=== PATIENT | male | born 1975 | race American Indian/Alaskan Native ===

== ENCOUNTER 2018-05-18 12:16 | Emergency (ER) | payer OTHER ==
--- NOTE | 2018-05-18 13:35 | XRay Report ---
RIGHT SHOULDER, 3 VIEWS: HISTORY: right shoulder pain. Normal bone mineralization. No acute osseous injury or joint pathology is detected. The soft tissues are unremarkable. IMPRESSION: Right shoulder within normal limits.
--- NOTE | 2018-05-18 16:48 | Emergency Department Report ---
ED Upper Extremity Inj HPI - General Chief Complaint: Shoulder Injury Stated Complaint: (R) SHOULDER PAIN Time Seen by Provider: 05/18/18 16:13 Source: patient Mode of arrival: Ambulatory Limitations: No Limitations - History of Present Illness Initial Comments: 42-year-old male presents to ED with right shoulder pain. Patient states he was carrying a rental car porter in front of him, began attempting to lift it upward and to the right when he experienced pain in the right shoulder. Denies feeling any popping sensation. Denies numbness or tingling in extremity. MD Complaint: Injury to:: right, shoulder -: This afternoon Other Injuries: none Improves With: immobilization Worsens With: movement of extremity Associated Symptoms: denies: weakness, numbness, neck pain, heard/felt popping sensat Treatments Prior to Arrival: cold therapy - Related Data Previous Rx's Medication Instructions Recorded Last Taken Type Aspirin [Aspirin TAB] 325 mg PO QDAY #30 tablet 01/26/18 Unknown Rx AtorvaSTATin [Lipitor] 20 mg PO QHS #30 tablet 01/26/18 Unknown Rx Insulin NPH, Human [NovoLIN N] 15 unit SUB-Q BIDDIAB 30 Days 01/26/18 Unknown Rx units Pantoprazole [Protonix TAB] 40 mg PO DAILY #30 tablet 01/26/18 Unknown Rx metFORMIN [Glucophage] 500 mg PO BIDDIAB #60 tablet 01/26/18 Unknown Rx Methocarbamol [Robaxin-750] 750 mg PO Q6HR PRN #20 tablet 05/18/18 Unknown Rx Naproxen [Naprosyn] 500 mg PO BID #20 tablet 05/18/18 Unknown Rx traMADol [Ultram] 50 mg PO Q6HR PRN #7 tablet 05/18/18 Unknown Rx Allergies Allergy/AdvReac Type Severity Reaction Status Date / Time No Known Allergies Allergy Verified 05/18/18 12:37 ED Review of Systems ROS: Stated complaint: (R) SHOULDER PAIN Other details as noted in HPI Comment: All other systems reviewed and negative Musculoskeletal: arthralgia. denies: joint swelling Neurological: denies: weakness, numbness, paresthesias ED Past Medical Hx - Past Medical History Previous Medical History?: Yes Hx Diabetes: Yes Additional medical history: high cholesterol. G6PD deficiency - Surgical History Hx Appendectomy: Yes Additional Surgical History: back surgery - Social History Smoking Status: Never Smoker Substance Use Type: None - Medications Home Medications: Home Medications Medication Instructions Recorded Confirmed Last Taken Type Aspirin [Aspirin TAB] 325 mg PO QDAY #30 tablet 01/26/18 Unknown Rx AtorvaSTATin [Lipitor] 20 mg PO QHS #30 tablet 01/26/18 Unknown Rx Insulin NPH, Human [NovoLIN N] 15 unit SUB-Q BIDDIAB 30 Days 01/26/18 Unknown Rx units Pantoprazole [Protonix TAB] 40 mg PO DAILY #30 tablet 01/26/18 Unknown Rx metFORMIN [Glucophage] 500 mg PO BIDDIAB #60 tablet 01/26/18 Unknown Rx Methocarbamol [Robaxin-750] 750 mg PO Q6HR PRN #20 tablet 05/18/18 Unknown Rx Naproxen [Naprosyn] 500 mg PO BID #20 tablet 05/18/18 Unknown Rx traMADol [Ultram] 50 mg PO Q6HR PRN #7 tablet 05/18/18 Unknown Rx ED Physical Exam - General Limitations: No Limitations General appearance: alert, in no apparent distress - Head Head exam: Present: atraumatic, normocephalic - Eye Eye exam: Present: normal appearance - ENT ENT exam: Present: mucous membranes moist - Neck Neck exam: Present: normal inspection - Respiratory Respiratory exam: Present: normal lung sounds bilaterally. Absent: respiratory distress - Cardiovascular Cardiovascular Exam: Present: regular rate, normal rhythm - Extremities Exam Extremities exam: Present: other (is present right shoulder, no deformities noted. Pain with abduction of the right arm. Able to abduct right arm to 90) - Neurological Exam Neurological exam: Present: alert, oriented X3. Absent: motor sensory deficit - Psychiatric Psychiatric exam: Present: normal affect, normal mood - Skin Skin exam: Present: warm, dry, intact, normal color ED Medical Decision Making - Radiology Data Radiology results: report reviewed, image reviewed RIGHT SHOULDER, 3 VIEWS: HISTORY: right shoulder pain. Normal bone mineralization. No acute osseous injury or joint pathology is detected. The soft tissues are unremarkable. IMPRESSION: Right shoulder within normal limits. Transcribed By: TTR Dictated By: MARIVEL KEITH JR, MD Electronically Authenticated By: MARIVEL KEITH JR, MD Signed Date/Time: 05/18/18 1333 - Differential Diagnosis fracture, sprain, dislocation Critical care attestation.: If time is entered above; I have spent that time in minutes in the direct care of this critically ill patient, excluding procedure time. ED Disposition Clinical Impression: Sprain of right shoulder Disposition: - TO HOME OR SELFCARE Is pt being admited?: No Condition: Stable Instructions: Shoulder Sprain (ED) Prescriptions: Methocarbamol [Robaxin-750] 750 mg PO Q6HR PRN #20 tablet PRN Reason: Spasms Naproxen [Naprosyn] 500 mg PO BID #20 tablet traMADol [Ultram] 50 mg PO Q6HR PRN #7 tablet PRN Reason: Pain Referrals: BRIANA OSCAR MD [Staff Physician] - 3-5 Days Time of Disposition: 16:50
[2018-05-18 17:35] VITALS: BP 126/88
== END 2018-05-18 17:34 | disposition home or self-care (01) ==
LOC: ED 12:16
DX: S43.401A Unspecified sprain of right shoulder joint, initial encounter (principal); E11.9 Type 2 diabetes mellitus without complications; E78.5 Hyperlipidemia, unspecified; X50.0XXA Overexertion from strenuous movement or load, initial encounter; Y93.89 Activity, other specified; Y92.89 Other specified places as the place of occurrence of the external cause; Y99.8 Other external cause status

== ENCOUNTER 2019-04-30 10:15 | Emergency (ER) | payer OTHER ==
[2019-04-30 10:51] VITALS: BP 147/84
--- NOTE | 2019-04-30 10:54 | Event Note ---
ED Screening Note Date of service: 04/30/19 Time: 10:51 ED Screening Note: 43 y o male presents to Ed cc of right shoulder pain states pain worse with lifting up This initial assessment/diagnostic orders/clinical plan/treatment(s) is/are subject to change based on patients health status, clinical progression and re- assessment by fellow clinical providers in the ED. Further treatment and workup at subsequent clinical providers discretion. Patient/guardian urged not to elope from the ED as their condition may be serious if not clinically assessed and managed. Initial orders include: xr Shoulder
--- NOTE | 2019-04-30 11:38 | Emergency Department Report ---
HPI - General Chief Complaint: Shoulder Injury Time Seen by Provider: 04/30/19 10:48 - HPI HPI: 43-year-old -[place] male presents to the emergency department with complaint of acute on chronic right shoulder pain. The patient has a history of a right shoulder injury from about one year ago. He had surgery done in February of this year that includes nerve decompression and fixing shoulder separation. He was at physical therapy last doing exercises when he developed some worsening of his shoulder pain. Because of this, the patient went to the [facility] for evaluation and was diagnosed with a strained muscle. However, he is on Worker's Compensation and the Worker's Compensation asked for a nonmilitary/civilian assessment of his shoulder pain. He denies any numbness, paresthesias, joint swelling, skin color change. ED Past Medical Hx - Past Medical History Previous Medical History?: Yes Hx Diabetes: Yes Additional medical history: high cholesterol. G6PD deficiency - Surgical History Past Surgical History?: Yes Hx Appendectomy: Yes Additional Surgical History: back surgery. right shoulder surgery - Social History Smoking Status: Never Smoker Substance Use Type: None - Medications Home Medications: Home Medications Medication Instructions Recorded Confirmed Last Taken Type Aspirin 325 mg PO QDAY #30 tablet 01/26/18 Unknown Rx AtorvaSTATin [Lipitor] 20 mg PO QHS #30 tablet 01/26/18 Unknown Rx Insulin NPH, Human [NovoLIN N] 15 unit SUB-Q BIDDIAB 30 Days 01/26/18 Unknown Rx units Pantoprazole [Protonix TAB] 40 mg PO DAILY #30 tablet 01/26/18 Unknown Rx metFORMIN [Glucophage] 500 mg PO BIDDIAB #60 tablet 01/26/18 Unknown Rx Methocarbamol [Robaxin-750] 750 mg PO Q6HR PRN #20 tablet 05/18/18 Unknown Rx Naproxen [Naprosyn] 500 mg PO BID #20 tablet 05/18/18 Unknown Rx traMADol [Ultram] 50 mg PO Q6HR PRN #7 tablet 05/18/18 Unknown Rx ED Review of Systems ROS: Stated complaint: R SHOULDER PAIN Other details as noted in HPI Comment: All other systems reviewed and negative Constitutional: denies: chills, fever Musculoskeletal: arthralgia (his urine showed blood right lower quadrant peritoneal signs history of gallstones). denies: joint swelling Neurological: denies: numbness, paresthesias Physical Exam - Physical Exam Vital Signs: Vital Signs 04/30/19 10:47 Temperature 98.4 F Pulse Rate 91 H Respiratory 20 Rate Blood Pressure 147/84 O2 Sat by Pulse 98 Oximetry Physical Exam: GENERAL: The patient is well-developed well-nourished. HENT: Normocephalic. Atraumatic. Patient has moist mucous membranes. EYES: Extraocular motions are intact. NECK: Supple. Trachea is midline. CHEST/LUNGS: Clear to auscultation. There is no respiratory distress noted. HEART/CARDIOVASCULAR: Regular. There is no tachycardia. There is no murmur. ABDOMEN: There is no abdominal distention. SKIN: Skin is warm and dry. NEURO: The patient is awake, alert, and oriented. The patient is cooperative. The patient has no focal neurologic deficits. Normal speech. MUSCULOSKELETAL: Mild tenderness to palpation to the right superior anterior shoulder. No obvious deformity. There is no limitation range of motion. ED Course Vital Signs 04/30/19 10:47 Temperature 98.4 F Pulse Rate 91 H Respiratory 20 Rate Blood Pressure 147/84 O2 Sat by Pulse 98 Oximetry ED Medical Decision Making - Radiology Data Radiology results: image reviewed interpreted by me: X-ray of the right shoulder does not show any fracture, dislocation or any acute process. - Medical Decision Making This patient presents to the emergency department for a second opinion of his right shoulder pain as he apparently needs a nonmilitary or a civilian physician to evaluate him as part of his Worker's Compensation claims. He has chronic right shoulder pain and a surgically repaired shoulder and recently exacerbated the shoulder pain during physical therapy. X-ray does not show any fracture, dislocation or any acute process. He has been given instructions to follow-up with his orthopedist. He will return to the ER with any worsening of his symptoms or any acute distress. Patient is neurovascularly intact. - Differential Diagnosis shoulder strain, fracture, dislocation Critical Care Time: No Critical care attestation.: If time is entered above; I have spent that time in minutes in the direct care of this critically ill patient, excluding procedure time. ED Disposition Clinical Impression: Right shoulder strain Qualifiers: Encounter type: initial encounter Qualified Code(s): S46.911A - Strain of unspecified muscle, fascia and tendon at shoulder and upper arm level, right arm, initial encounter Disposition: DC-01 TO HOME OR SELFCARE Is pt being admited?: No Condition: Stable Instructions: Shoulder Sprain (ED), Arthralgia (ED) Additional Instructions: Please follow-up with your orthopedist and primary care physician. Return to the emergency Department with any worsening of your symptoms or any acute d istress. Referrals: PRIMARY CARE, [Primary Care Provider] - 2-3 Days Orthopedist, Your [Other] - 2-3 Days Time of Disposition: 11:37
--- NOTE | 2019-04-30 12:31 | XRay Report ---
Right shoulder, 3 views INDICATION: Right shoulder pain. COMPARISON: None. IMPRESSION: No acute osseous or soft tissue abnormality. No significant DJD. Surgical clip overli es the proximal humerus suggesting previous surgery, correlate with history. Signer Name: Storm Benavidez Jr, MD Signed: 04/30/2019 12:26 PM Workstation Name: [id number]
== END 2019-04-30 11:55 | disposition home or self-care (01) ==
LOC: ED 10:15
DX: S46.911A Strain of unspecified muscle, fascia and tendon at shoulder and upper arm level, right arm, initial encounter (principal); X58.XXXA Exposure to other specified factors, initial encounter; Y93.89 Activity, other specified; Y92.89 Other specified places as the place of occurrence of the external cause; Y99.9 Unspecified external cause status